=== PATIENT | female | born 1970 | race Two or more races ===

== ENCOUNTER 2024-10-07 09:19 | Emergency (ER) | payer MEDICAID, SELFPAY ==
[2024-10-07 09:20] VITALS: BMI 29.2
--- NOTE | 2024-10-07 09:29 | XR_ITS ---
Examination: PA lateral chest 2 views Technique: Upright PA lateral chest 2 views Exam date and time: October 07, 2024 0952 hrs. Indications: Coughing fever beginning 2 days ago. Findings: Normal heart size. Mild accentuation basilar bronchovascular markings. No lobar pneumonia Moderate osteopenia Impression: Mild basilar bronchitis pattern
[2024-10-07 09:30] VITALS: BP 149/81; PULSE 77; RESP 20; TEMP 36.8; O2SAT 98
--- NOTE | 2024-10-07 09:40 | EDNOTE_ITS ---
<Statement entered by Geena Cheatham MD - 10/07/24 15:35> As co-signing physician, I was present and available for consult prn. I concur with the plan and care as documented by the midlevel provider. Upper Respiratory Inf. RME/HPI General Chief Complaint: Flu Like Symptoms Stated Complaint: FEVER, COUGH X2 DAYS RIGHT UPPER BACK PAIN XTODAY Time Seen by Provider: 10/07/24 09:30 Arrival date/time: 10/07/24 09:19 54-year-old female with no reported medical problems currently not taking medication presents to the emergency department complains of cough, congestion and runny nose patient reports symptoms ongoing for the last couple of days Limitations: no limitations Related Data Previous Rx's ?Medication ?Instructions ?Recorded prednisone 10 mg tablet 10 mg PO BID #6 tabs 01/23/19 ferrous sulfate 325 mg (65 mg 325 mg PO BID #120 tabs 04/26/19 iron) tablet,delayed release albuterol sulfate 90 mcg/actuation 2 puff inhalation Q6H PRN 10/07/24 aerosol inhaler (Ventolin HFA) shortness of breath or wheezing #8.5 grams benzonatate 100 mg capsule 100 mg PO TID #14 caps 10/07/24 prednisone 10 mg tablet 30 mg (3 x 10 mg) PO BID 3 days 10/07/24 #18 tabs Allergies Allergy/AdvReac Type Severity Reaction Status Date / Time No Known Allergies Allergy Verified 10/07/24 09:23 Review of Systems Review of Systems Systems Reviewed: All systems reviewed, normal except as documented Constitutional Constitutional: Reports system reviewed and no additional complaints, except as documented, Denies fever(s) and Denies headache(s) Eyes Eyes: Reports system reviewed and no additional complaints, except as documented and Denies blurry vision ENT Ears, Nose, Mouth, and Throat: Reports system reviewed and no additional complaints, except as documented, Denies headache(s), Denies nasal congestion and Denies nasal discharge Cardiovascular Cardiovascular: Reports system reviewed and no additional complaints, except as documented, Denies chest pain and Denies dyspnea Respiratory Respiratory: Reports system reviewed and no additional complaints, except as documented, Reports chest congestion, Reports cough and Denies dyspnea Gastrointestinal Gastrointestinal: Reports system reviewed and no additional complaints, except as documented and Denies abdominal pain Integumentary/Breasts Skin/Breast: Reports system reviewed and no additional complaints, except as documented and Denies rash Neurologic Neurologic: Reports system reviewed and no additional complaints, except as documented, Reports as per HPI and Denies headache(s) Past Medical History Past Medical History NEUROLOGIC: Negative Neurological Disorders CARDIAC: Negative Cardiac Disorders ED Exam General Limitations: Present no limitations General appearance: Present alert and in no apparent distress Head Head exam: Present atraumatic, normocephalic and normal inspection Eye Eye exam: Present normal appearance, PERRL and EOMI; Absent conjunctival injection ENT ENT exam: Present normal exam, normal oropharynx and mucous membranes moist Neck Neck exam: Present normal inspection, full ROM and trachea midline Chest Chest inspection: Present normal inspection and symmetric chest wall rise Respiratory Respiratory exam: Present normal lung sounds bilaterally; Absent respiratory distress Cardiovascular Cardiovascular exam: Present regular rate, normal rhythm and normal heart sounds Abdominal Exam Abdominal exam: Present soft and normal bowel sounds; Absent distention, tenderness, guarding, rebound or rigidity Extremities Exam Extremities exam: Present normal inspection and full ROM Back Exam Back exam: Present normal inspection and full ROM Neurological Exam Neurological exam: Present alert, oriented X3 and CN II-XII intact Psychiatric Psychiatric exam: Present normal affect and normal mood Skin Skin exam: Present warm, dry, intact and normal color Course Quality Measures none Orders Category Date Time Status Bedside COVID-19 Antigen Test NOW Care 10/07/24 09:29 Active Bedside Influenza A&B Antigen Test NOW Care 10/07/24 09:29 Completed XR chest 2V Stat Exams 10/07/24 09:29 Completed Vital Signs Vital signs: Vital Signs Temperature 98.3 F 10/07/24 09:30 Pulse Rate 77 10/07/24 09:30 Respiratory Rate 20 10/07/24 09:30 Blood Pressure 149/81 H 10/07/24 09:30 Pulse Oximetry (%) 98 10/07/24 09:30 Oxygen Delivery Method Room Air 10/07/24 09:30 O2 saturation 98% room air within normal limits Upper Respiratory Infection MDM Narrative MDM Narrative:: 54-year-old female with no reported medical problems currently not taking medication presents to the emergency department complains of cough, congestion and runny nose patient reports symptoms ongoing for the last couple of days On exam patient does not appear ill or toxic patient not appear in acute distress patient has no difficulty breathing Chest x-ray flu and COVID obtained Chest x-ray reviewed by me no pneumonia x-ray consistent with bronchitis Flu and COVID reviewed by me are both negative Patient discharged home in no distress to follow-up with primary care doctor in the next 24 to 48 hours and for any worsening symptoms to return to the ER immediately Patient data External records reviewed:: [facility] previous records Clinical information provided by:: patient Social determinants that could affect healthcare access:: none Patient has the following chronic illnesses:: None How is presenting disease/condition affected by chronic disease/condition?: no chronic disease Evaluation data The following diagnostics were reviewed and interpreted by me:: lab results and radiology exam(s) Lab and/or radiology exams considered but not ordered:: Labs radiology obtained Interpretation Summary: Reviewed by me Medications / Prescriptions Medications or Prescriptions considered but not ordered:: Given Medication administrations:: Given Consultations Consultation(s) initiated? (list below): No Diagnosis Upper Respiratory Differential Diagnosis: upper respiratory infection, viral infection and bronchitis Most likely diagnosis given after review of the tests above:: Viral illness Admission Indicated Admission indicated?: not indicated Admission Request Was there a request for admission?: No Disposition Plan Disposition Plan: Discharge Discharge Attestation Discharge Attestation: The patient and all family members were given an opportunity to ask questions and understood the discharge instructions. Discharge instructions specifically effects, indications for sooner follow up or return to the emergency department, and the expected course of current diagnosis. Patient condition: Stable Discharge Plan Plan Patient Disposition: HOME (Self Care) Disposition Comment: Stable Prescriptions/Referrals Prescriptions/Med Rec: New prednisone 10 mg tablet 30 mg PO BID 3 Days Qty: 18 0RF benzonatate 100 mg capsule 100 mg PO TID Qty: 14 0RF albuterol sulfate [Ventolin HFA] 90 mcg/actuation HFA aerosol inhaler 2 puff inhalation Q6H PRN (Reason: shortness of breath or wheezing) Qty: 8.5 0RF No Action prednisone 10 mg tablet 10 mg PO BID Qty: 6 0RF ferrous sulfate 325 mg (65 mg iron) tablet,delayed release (DR/EC) 325 mg PO BID Qty: 120 0RF Referrals: Geo Cardoso MD [Primary Care Provider] - 10/09/24 Problem List Clinical Impression: Bronchitis Patient/Caregiver Discharge Instructions Education Materials: ED Bronchitis, No Antibiotic (Adult) Additional Instructions: Please follow up with your primary care doctor in the next 24-48hrs for any worsening symptoms return here immediately Print Language: Mongolian Stand Alone Forms: Norma Award Info., Patient Portal Info Letter PA/[employer] Supervising Physician PA/[employer] Supervising Physician: Dr. CHEATHAM
--- NOTE | 2024-10-07 13:32 | PC.NURSE ---
Pt was called back by KELVIN Purvis to get reviewed and discharged but did not answer when name was called from the lobby.
== END 2024-10-07 11:42 | disposition home or self-care (01) ==
PROVIDERS: Emergency Provider Emergency Medicine; PCP Family Medicine
DX: J40 Bronchitis, not specified as acute or chronic (principal)
CPT/HCPCS: 71046; 87400; 87811; 99283

== ENCOUNTER 2024-12-24 09:25 | Emergency (ER) | payer MEDICAID, SELFPAY ==
[2024-12-24 09:40] VITALS: BP 130/78; PULSE 68; RESP 17; TEMP 36.6; O2SAT 97
--- NOTE | 2024-12-24 09:45 | XR_ITS ---
Examination: Abdomen sonogram, Limited Date and time of exam: December 24, 2024 10:10 AM Indications: Right upper abdominal pain beginning 3 days ago Technique: Real-time talamantes scale transabdominal sonographic images of the upper abdomen obtained. Findings: Normal gallbladder. Normal common bile duct 0.2 cm Pancreatic head 2.5 cm Liver 17.4 cm no liver lesions. Normal hepatopedal portal venous flow Patent IVC Impression: Normal gallbladder Mild hepatomegaly
--- NOTE | 2024-12-24 09:53 | EDNOTE_ITS ---
ED Abdominal Pain RME/HPI General Chief Complaint: Abdominal Pain Stated complaint: UPPER EPIGASRTIC PAIN Time seen by provider: 12/24/24 09:30 Arrival date/time: 12/24/24 09:25 54-year-old female with no known medical history presents to the emergency room with a chief complaint of 6 out of 10 epigastric pain x 4 days Source: patient Mode of arrival: ambulatory Limitations: no limitations Related Data Previous Rx's ?Medication ?Instructions ?Recorded prednisone 10 mg tablet 10 mg PO BID #6 tabs 9 ferrous sulfate 325 mg (65 mg 325 mg PO BID #120 tabs 04/26/19 iron) tablet,delayed release albuterol sulfate 90 mcg/actuation 2 puff inhalation Q 6H PRN 10/07/24 aerosol inhaler (Ventolin HFA) shortness of breath or wheezing #8.5 grams benzonatate 100 mg capsule 100 mg PO TID #14 caps 09/20 05/14 omeprazole 40 mg capsule,delayed 40 mg PO QDAY #14 cap s 12/24/24 release Allergies Allergy/AdvReac Type Severity Reaction Status Date / Time No Known Allergies Allergy Verified 12/24/24 09:29 Review of Systems Review of Systems Systems Reviewed: All systems reviewed, normal except as documented Constitutional Constitutional: Reports system reviewed and no additional complaints, except as documented, Denies fatigue, Denies fever(s), Denies headache(s) and Denies weakness Eyes Eyes: Reports system reviewed and no additional complaints, except as documented, Denies blurry vision and Denies change in vision ENT Ears, Nose, Mouth, and Throat: Reports system reviewed and no additional complaints, except as documented, Denies otalgia, Denies headache(s), Denies nasal congestion, Denies throat swelling and Denies vertigo Cardiovascular Cardiovascular: Reports system reviewed and no additional complaints, except as documented, Denies chest pain, Denies dyspnea and Denies dyspnea on exertion Respiratory Respiratory: Reports system reviewed and no additional complaints, except as documented, Denies chest congestion, Denies cough, Denies dyspnea, Denies dyspnea on exertion and Denies wheezing Gastrointestinal Gastrointestinal: Reports system reviewed and no additional complaints, except as documented, Reports abdominal pain, Reports cramping, Reports loose stools, Reports nausea and Denies vomiting Genitourinary Genitourinary: Reports system reviewed and no additional complaints, except as documented Musculoskeletal Musculoskeletal: Reports system reviewed and no additional complaints, except as documented and Denies back pain Integumentary/Breasts Skin/Breast: Reports system reviewed and no additional complaints, except as documented and Denies wounds Neurologic Neurologic: Reports system reviewed and no additional complaints, except as documented, Denies confusion, Denies headache(s), Denies lack of coordination, Denies vertigo and Denies weakness Psychiatric Psychiatric: Reports system reviewed and no additional complaints, except as documented, Denies anxiety, Denies confusion, Denies depression, Denies paranoia, Denies suicidal ideation and Denies tactile hallucinations Endocrine Endocrine: Reports system reviewed and no additional complaints, except as documented and Denies fatigue Hematologic/Lymphatic Hematologic/Lymphatic: Reports system reviewed and no additional complaints, except as documented and Denies lymphadenopathy Allergic/Immunologic Allergic/Immunologic: Reports system reviewed and no additional complaints, except as documented, Denies throat swelling, Denies urticaria and Denies wheezing Past Medical History Past Medical History NEUROLOGIC: Negative Neurological Disorders CARDIAC: Negative Cardiac Disorders or Congestive Heart Failure RESPIRATORY: Negative Chronic Obstructive Pulmonary Disease (COPD) GENITOURINARY: Negative Renal Disease ENDOCRINE: Negative Diabetes Mellitus Type 1 or Diabetes Mellitus Type 2 Surgical History SURGICAL: Positive Section Social History SMOKING STATUS: Never smoker ED Exam General Limitations: Present no limitations General appearance: Present alert and in no apparent distress Head Head exam: Present atraumatic Eye Eye exam: Present normal appearance, PERRL and EOMI ENT ENT exam: Present normal exam, normal oropharynx and mucous membranes moist Neck Neck exam: Present normal inspection, full ROM and trachea midline Chest Chest inspection: Present normal inspection and symmetric chest wall rise Respiratory Respiratory exam: Present normal lung sounds bilaterally Cardiovascular Cardiovascular exam: Present regular rate, normal rhythm and normal heart sounds Abdominal Exam Abdominal exam: Present soft, tenderness and normal bowel sounds Abdominal tenderness: Present RUQ and moderate Extremities Exam Extremities exam: Present normal inspection and full ROM Back Exam Back exam: Present normal inspection and full ROM Neurological Exam Neurological exam: Present alert, oriented X3 and CN II-XII intact Psychiatric Psychiatric exam: Present normal affect and normal mood Skin Skin exam: Present warm, dry, intact and normal color Course Quality Measures none Orders Category Date Time Status US gall bladder Stat Exams 12/24/24 09:45 Completed CBC Stat Lab 12/24/24 09:54 Completed CMP [Comprehensive Metabolic Panel] Stat Lab 12/24/24 09:54 Completed Lipase Stat Lab 12/24/24 09:54 Completed UA [Urinalysis] Stat Lab 12/24/24 09:52 Completed Urine Culture Stat Lab 12/24/24 09:52 Received mg Hyd/Al Hyd/Stacy Susp [Maalox Susp] Med 12/24/24 09:45 Discontinued 30 ml PO X1 ONE Vital Signs Vital signs: Vital Signs Temperature 97.8 F 12/24/24 09:40 Pulse Rate 68 12/24/24 09:40 Respiratory Rate 17 12/24/24 09:40 Blood Pressure 130/78 12/24/24 09:40 Pulse Oximetry (%) 97 12/24/24 09:40 Oxygen Delivery Method Room Air 12/24/24 09:40 O2 saturation 97% within normal limits Abdominal Pain MDM MDM Narrative MDM Narrative:: 54-year-old female with no known medical history presents to the emergency room with a chief complaint of 6 out of 10 epigastric pain x 4 days Patient is hemodynamically stable she is not tachycardic not tachypneic and afebrile Physical examination shows tenderness to the epigastric area of her abdomen. Ultrasound of the gallbladder was completed and was negative for any cholecystitis or cholelithiasis. CBC CMP were within normal limits. Urinalysis was within normal limits. Patient was discharged and educated to follow-up with primary care provider in the next 24 to 48 hours and return to the emergency room for any evidence of worsening signs or symptoms Patient data [place] [facility] [place] Clinical information provided by:: patient Social determinants that could affect healthcare access:: none Patient has the following chronic illnesses:: No chronic illness How is presenting disease/condition affected by chronic disease/condition?: no chronic disease Evaluation data The following diagnostics were reviewed and interpreted by me:: lab results and radiology exam(s) Lab and/or radiology exams considered but not ordered:: Labs and radiology exams considered and ordered Interpretation Summary: Ultrasound gallbladder-Findings: Normal gallbladder. Normal common bile duct 0.2 cm Pancreatic head 2.5 cm Liver 17.4 cm no liver lesions. Normal hepatopedal portal venous flow Patent IVC Impression: Normal gallbladder Mild hepatomegaly Medications / Prescriptions Medications or Prescriptions considered but not ordered:: Medication given Medication administrations:: Medication Administration History Discontinued Medications Al Hydrox/Mg Hydrox/Simethicone (Mg Hyd/Al Hyd/Stacy (Maalox Reg) Susp 30 Ml Udc) 30 ml PO X1 ONE Stop: 12/24/24 09:46 Last Admin: 12/24/24 09:59 Dose: 30 ml Documented By: KERRY Medication given Consultations Consultation(s) initiated? (list below): No Diagnosis Differential diagnosis abdominal pain: abdominal pain, gastroenteritis and other (Cholelithiasis/cholecystitis/gastritis) Most likely diagnosis given after review of the tests above:: Gastritis Admission Indicated Admission indicated?: not indicated Admission Request Was there a request for admission?: No Disposition Plan Disposition Plan: Discharge Discharge Attestation Discharge Attestation: The patient and all family members were given an opportunity to ask questions and understood the discharge instructions. Discharge instructions specifically effects, indications for sooner follow up or return to the emergency department, and the expected course of current diagnosis. Patient condition: Stable Discharge Plan Plan Patient Disposition: HOME (Self Care) Disposition Comment: Stable Prescriptions/Referrals Prescriptions/Med Rec: New omeprazole 40 mg capsule,delayed release(DR/EC) 40 mg PO QDAY Qty: 14 0RF No Action prednisone 10 mg tablet 10 mg PO BID Qty: 6 0RF ferrous sulfate 325 mg (65 mg iron) tablet,delayed release (DR/EC) 325 mg PO BID Qty: 120 0RF benzonatate 100 mg capsule 100 mg PO TID Qty: 14 0RF albuterol sulfate [Ventolin HFA] 90 mcg/actuation HFA aerosol inhaler 2 puff inhalation Q6H PRN (Reason: shortness of breath or wheezing) Qty: 8.5 0RF Referrals: Geo Cardoso MD [Primary Care Provider] - In 1 week Problem List Clinical Impression: Gastritis Patient/Caregiver Discharge Instructions Education Materials: ED Gastritis (Adult) Additional Instructions: Please follow-up with your primary care provider in the next 24 to 48 hours. The ultrasound of your gallbladder was completed and was negative for any acute findings. Your blood work and urinalysis were also negative for any acute findings For any evidence of worsening signs or symptoms return to the emergency room immediately Print Language: Japanese Stand Alone Forms: Norma Award Info., Patient Portal Info Letter PA/ZEINA Supervising Physician PA/ZEINA Supervising Physician: Dr. Johnson
[2024-12-24 09:58] LABS: Collection Type, Urine Clean Catch
[2024-12-24] MEDS: MG HYD/AL HYD/SIME (Maalox Reg) SUSP 30 ML UDC PO (09:59)
[2024-12-24 10:01] LABS: Basophils # (Auto) 0.1 Thou/mm3 (0.0-0.2); Basophils % (Auto) 1 % (0-2.5); Eosinophils # (Auto) 0.3 Thou/mm3 (0.0-0.5); Eosinophils % (Auto) 4 % (0-10); Hematocrit 43.7 % (36.0-46.0); Hemoglobin 15.6 g/dL (12.0-16.0); Immature Granulocytes % (Auto) 0 % (0-0); Immature Granulocytes Auto 0.03 Thou/mm3 (0.00-0.00); Lymphocytes # (Auto) 1.6 Thou/mm3 (1.0-4.8); Lymphocytes % (Auto) 21 % (10-50); Mean Corpuscular HGB Conc 35.7 g/dl (31.0-37.0); Mean Corpuscular Volume 87 fL (80-100); Monocytes # (Auto) 0.7 Thou/mm3 (0.0-0.8); Monocytes % (Auto) 9 % (0-12); Neutrophils # (Auto) 4.9 Thou/mm3 (1.8-7.7); Neutrophils % (Auto) 65 % (37-80); Nucleated Red Blood Cell % 0 /100 WBC (0); Platelet Count 227 Thou/mm3 (140-440); RDW Standard Deviation 39.8 fL (36.4-46.3); Red Blood Count 5.04 Miln/mm3 (4.00-5.20); White Blood Count 7.6 Thou/mm3 (3.6-11.0)
[2024-12-24 10:03] LABS: Bilirubin,Urine Negative (Negative); Blood,Urine Negative (Negative); Clarity,Urine Clear (Clear/Hazy); Color,Urine Lt-Yellow (Lt Yel-Yel); Glucose, Urine Negative (Negative); Ketones,Urine Negative (Negative); Leukocyte Esterase,Urine Negative (Negative); Nitrite,Urine Negative (Negative); Protein,Urine Trace (Neg - Trace); RBC,Urine 2 /hpf (0-3); Specific Gravity,Urine 1.022 (1.001-1.035); Squamous Epithelial Cell,Urine 1 /hpf (0-5); Urobilinogen,Urine Negative mg/dL (0.0-1.0); WBC,Urine 2 /hpf (0-5)
[2024-12-24 10:22] LABS: Alanine Aminotransferase 21 U/L (10-49); Albumin, Serum 4.3 gm/dL (3.5-5.0); Albumin/Globulin Ratio 1.5 (1.2-2.2); Alkaline Phosphatase 100 U/L (46-116); Anion Gap 7 (7-16); Aspartate Amino Transferase 22 U/L (0-34); BUN/Creatinine Ratio 13 Ratio (12-20); Bilirubin,Total 0.7 mg/dL (0.3-1.2); Blood Urea Nitrogen 10 mg/dL (9-23); Calcium 9.2 mg/dL (8.3-10.6); Calcium (Corrected) 9.2 mg/dL (8.5-10.1); Carbon Dioxide 25.1 mMol/L (20.0-31.0); Chloride 107 mMol/L (98-107); Creatinine (Component) 0.8 mg/dL (0.6-1.3); Globulin 2.8 gm/dL (2.3-3.5); Glucose 90 mg/dL (74-106); Lipase 40 U/L (12-53); Osmolality,Calculated 276 (275-295); Potassium 4.5 mMol/L (3.4-5.1); Sodium 139 mMol/L (136-145); Total Protein 7.1 gm/dL (5.7-8.2); eGFR > 60 See Note
[2024-12-24 11:36] VITALS: BP 137/84; PULSE 74; RESP 16; TEMP 36.7; O2SAT 98
== END 2024-12-24 11:52 | disposition home or self-care (01) ==
PROVIDERS: Nurse Practitioner Family; Emergency Provider Family Medicine; PCP Family Medicine
DX: K29.70 Gastritis, unspecified, without bleeding (principal)
CPT/HCPCS: 36415; 76705; 80053; 81001; 83690; 85025; 87086; 99284; A9270